=== PATIENT | female | born 1950 | race Caucasian/White ===

== ENCOUNTER 2020-09-27 02:11 | Inpatient (IN) | payer MEDICARE ==
[~2020-09-27] VITALS: Ht 162.6 cm; Wt 83.8 kg
[2020-09-27 02:49] LABS: Mean Platelet Volume 9.5 fL (9.1-12.4); Platelet Count 288 K/mm3 (150-400)
[2020-09-27 03:20] LABS: International Normalized Ratio 1.03
[2020-09-27] MEDS ORDERED: Aspir 8181 MG PO (03:44)
[2020-09-27] MEDS ORDERED: ATOR20 PO (03:45)
[2020-09-27] MEDS ORDERED: METO25 PO (03:47)
[2020-09-27] MEDS ORDERED: Primidone50 MG PO (03:49)
[2020-09-27] MEDS ORDERED: LOSA25 PO (03:51)
[2020-09-27] MEDS ORDERED: GABA100 PO (03:52)
[2020-09-27] MEDS ORDERED: TICA90TA PO (03:53)
[2020-09-27] MEDS ORDERED: TRAM50 PO (03:55)
[2020-09-27] MEDS ORDERED: NITR.4SL SL (03:56)
[2020-09-27 06:03] LABS: Alanine Aminotransfer (ALT/SGP 14 U/L (12-78); Albumin, Blood 3.6 g/dL (3.4-5.0); Albumin/Globulin Ratio 1.1 (0.8-1.8); Alk Phos 106 U/L (50-136); Anion Gap 5 mmol/L (6-16); Aspartate Aminotrans (AST/SGOT 16 U/L (12-37); Bilirubin, Total 0.3 mg/dL (0.1-1.0); Blood Urea Nitrogen 14 mg/dL (8-24); Bun/Creatinine Ratio 18.8 (12.0-20.0); CO2, Blood 30 mmol/L (21-32); Calcium, Blood 9.1 mg/dL (8.5-10.1); Chloride, Blood 106 mmol/L (98-108); Creatinine, Blood 0.75 mg/dL (0.40-1.00); Globulin, Blood 3.3 g/dL (2.2-4.0); Glomerular Filtration Rate >60 (60-); Glucose, Blood 93 mg/dL (70-99); Potassium, Blood 3.9 mmol/L (3.5-5.5); Sodium, Blood 141 mmol/L (136-145); Total Protein, Blood 6.9 g/dL (6.4-8.2)
[2020-09-27 06:13] LABS: BASOPHILS ABSOLUTE AUTO 0.02 K/mm3 (0.00-0.23); BASOPHILS PERCENT AUTO 0 % (0-2); EOSINOPHILS ABSOLUTE AUTO 0.25 K/mm3 (0.00-0.68); EOSINOPHILS PERCENT AUTO 3 % (0-6); Hematocrit 40.2 % (33.0-51.0); Hemoglobin 12.5 g/dL (11.5-16.0); IMMATURE GRAN ABSOLUTE AUTO 0.02 K/mm3 (0.00-0.10); IMMATURE GRAN PERCENT AUTO 0 % (0-1); LYMPHOCYTES ABSOLUTE AUTO 2.19 K/mm3 (0.84-5.20); LYMPHOCYTES PERCENT AUTO 30 % (21-46); MONOCYTES ABSOLUTE AUTO 0.57 K/mm3 (0.16-1.47); MONOCYTES PERCENT AUTO 8 % (4-13); Mean Corpuscular HGB 29.6 pg (26.0-34.0); Mean Corpuscular HGB Conc 31.1 g/dL (31.5-36.5); Mean Corpuscular Volume 95 fL (80-100); Mean Platelet Volume 9.7 fL (9.1-12.4); NEUTROPHILS ABSOLUTE AUTO 4.23 K/mm3 (1.96-9.15); NEUTROPHILS PERCENT AUTO 58 % (41-73); Platelet Count 286 K/mm3 (150-400); RDW Standard Deviation 48.7 fL (35.1-46.3); Red Blood Cell Count 4.22 M/mm3 (3.80-5.20); White Blood Cell Count 7.28 K/mm3 (4.00-11.30)
--- NOTE | 2020-09-27 07:44 | NUR ---
ED ADMIT ARRIVES AT 0320. STEADY GAIT. NO SOB. LUNGS CLEAR. PAIN NEVER RESOLVED COMPLETELY FOR MANY DAYS IT COMES AND GOES AND USUALLY ABOUT A 3/10 AND LOCALIZED MID STERNAL BUT FREQ RADIATES THRU TO BACK. IT IS DOING ON THIS ADMIT DISCRIPTION. PLACED CALL TO DR MEDINA TO REQUEST ORDERS SINCE THE HEPARIN AND NTG GTT WERE TURNED OFF COMPLETELY IN THE ED AND NO ORDERS TO START AGAIN. PHARMACY WILL REVIEW THIS AND ORDERS CAN BE ESTABLISHED FOR THIS MARINA. SUBLIMAZE RELIEVED CP WHEN ABLE TO FINALLY GIVE PER ORDER. O2 PLACED. NPO FOR CARDIOLOGY CONSULT. DOZING AT SHORT INTERVAL.
--- NOTE | 2020-09-27 09:34 | NUR ---
AM NOTE... ASSUMED CARE OF PT APROX 0700, PT IS A&Ox4 AND SBA IN THE ROOM D/T THE LINES AND CORDS. PT WAS ADMITTED FOR NSTEMI WITH ELEVATED TROPONINS ON ADMIT. ON ASSESSMENT PT C/O OF 2/10 CHEST PAIN AND 7/10 HEADACHE. PT'S VS STABLE AT THIS TIME SHE IS IN NSR/SB MID 50'S-60'S WITH NO ST CHANGES NOTED. BP STABLE AT THIS TIME. NO EDEMA NOTED ON ASSESSMENT. PT IS ON RA WITH O2 SATS>90%. L/S CLEAR T/O. BT PRESENT AND HYPOACTIVE, ABD IS SOFT AND NONTENDER TO PALP. PT HAS BEEN NPO UNTIL SEEN BY CARDIOLOGY. ECHO WAS DONE THIS AM. CALL LIGHT IN REACH WILL CONTINUE TO MONITOR.
--- NOTE | 2020-09-27 10:00 | NUR ---
ASSUMED PT CARE. PT RESTING QUIETLY IN BED. DENIES CHEST PAIN OR SOB AT THIS TIME. PT WILL CALL FOR RETURN OF CP OR SOB. PT AWARE THAT SHE IS NPO PENDING CONSULT FROM DR. JUAN AND POSSIBLE BACKGROUND CHECK COORDINATOR TODAY. PT VERBALIZES BOTH COOPERATION AND UNDERSTANDING. NEXT CARDIAC MARKERS AND PTT @ 1030.
--- NOTE | 2020-09-27 11:46 | NUR ---
DR JUAN AT BEDSIDE; PT CONSENTED FOR ANGIOGRAM. HEPARIN GTT STOPPED AT [address] JUAN. RAPID COVID 19 SENT TO LAB
[2020-09-27 11:49] LABS: Alanine Aminotransfer (ALT/SGP 13 U/L (12-78); Albumin, Blood 3.3 g/dL (3.4-5.0); Albumin/Globulin Ratio 1.1 (0.8-1.8); Alk Phos 100 U/L (50-136); Anion Gap 4 mmol/L (6-16); Aspartate Aminotrans (AST/SGOT 15 U/L (12-37); Bilirubin, Total 0.4 mg/dL (0.1-1.0); Blood Urea Nitrogen 12 mg/dL (8-24); Bun/Creatinine Ratio 16.8 (12.0-20.0); CO2, Blood 29 mmol/L (21-32); CPK Creatine Kinase 75 U/L (26-193); Chloride, Blood 107 mmol/L (98-108); Creatinine, Blood 0.71 mg/dL (0.40-1.00); Globulin, Blood 2.9 g/dL (2.2-4.0); Glomerular Filtration Rate >60 (60-); Glucose, Blood 86 mg/dL (70-99); Potassium, Blood 4.2 mmol/L (3.5-5.5); Sodium, Blood 140 mmol/L (136-145); Total Protein, Blood 6.2 g/dL (6.4-8.2)
[2020-09-27 11:54] LABS: Troponin I 0.653 ng/mL (0.000-0.040)
[2020-09-27 14:14] LABS: Influenza A, PCR Negative (NEGATIVE); Influenza B, PCR Negative (NEGATIVE); Resp Syncytial Virus, PCR Negative (NEGATIVE); SARS-Cov-2 (COVID-19) PCR, MMC Negative (NEGATIVE)
--- NOTE | 2020-09-27 14:34 | NUR ---
PT UP TO BEDSIDE COMMODE WITH STANDBY ASSIST. NO CP OR SOB.
--- NOTE | 2020-09-27 14:49 | NUR ---
PT VISITING WITH HER SON. NO NOTED DISTRESS-REPORT GIVEN TO TAYE IVY IN PREP TO TRANSFER PT TO PCU 15.
--- NOTE | 2020-09-27 14:51 | NUR ---
Telephonr report from Ofe Hairston RN. Pt transferring from ICU 14 to PCu 15. NPO for angiogram this afternoon.
--- NOTE | 2020-09-27 15:15 | NUR ---
Received pt from ICU. Her son is at the bedside. She is pleasantly conversant, only complaint is of headache, which she states is from the nitro. Given Tylenol for pain at this time. spo2 on room air 88-89%; put on 2 l/min of oxygen again, and spo2 improved to 92-94%.
--- NOTE | 2020-09-27 15:17 | NUR ---
Pt remains NPO for angiogram.
--- NOTE | 2020-09-27 17:06 | NUR ---
Pt taken to [facility] by Lopez, Harry.
--- NOTE | 2020-09-27 17:59 | NUR ---
Pt returned from the [facility] [place] [facility] angiogram. She appears to be sleeping, but opens her eyes and responds appropriately. States that she is too sleepy at this time to eat dinner. Vital signs taken and noted stable. Right wrist TR band in place, Alexandra RN states 9 cc in the band. NO swelling, no bleeding, no evidence of hematoma. Fingers of right hand are dark red, cap refill 4-5 seconds. spo2 measured on second digit of right hand is 99% on 2 l/min of oxygen delivery by nasal cannula. She is in no apparent distress, and has no complaints at this time. Bedside report received from Alexandra and Harry Tuttle from [facility].
--- NOTE | 2020-09-27 18:56 | NUR ---
Right radial site TR band in place, no ecchymosis, no swelling, no bleeding. The pt is sitting up in bed, eating dinner. she reports no pain or discomfort at this time. Vital signs noted stable.
--- NOTE | 2020-09-27 19:47 | NUR ---
bedside report given to Rosemary. The pt reported pain in her right forearm. No evidence of hematoma, no bleeding noted. 2 cc air removed slowly from the TR band and a trace amount of blood started to leak out of the site. 1 cc air reinflated into the band and the bleeding stopped. Vital signs taken, noted stable.
--- NOTE | 2020-09-28 05:58 | NUR ---
SHIFT SUMMARY: LONG IS A&OX4. VSS, ORA, NO ACUTE EVENTS OVERNIGHT. SITE OF ANGIOGRAM COVERED WITH OPSITE WHICH IS C/D&I, ARM BOARD IN PLACE. SHE IS INDEPENDENT IN THE ROOM AND IS TOLERATING PO INTAKE WELL. SHE IS URINATING WITHOUT DIFFICULTY, STRONG SMELLING URINE N0TED. SHE DENEIS ANY URINARY SYMPTOMS. IV TO L AC AND R FOREARM PATENT. SHE IS LYING IN BED WITH HER CALL LIGHT IN REACH. WILL REPORT TO DAY SHIFT RN.
--- NOTE | 2020-09-28 07:53 | NUR ---
ASSUMED CARE FROM NOC RN, BL. PT WAS AWAKE AND ORIENTED DURING REPORT. PT DENIES ANY PAIN OR NUMBNESS TO THE SURGICAL SITE. VS STABLE, PT ON ROOM AIR. PT STATED SHE HAD SOME CHEST PAIN LAST NIGHT BUT IT WAS RIGHT AFTER SHE ATE A LARGE MEAL AND SHE THOUGHT IT WAS INDIGESTION; ZOFRAN WAS GIVEN AND SEEMED TO HELP. PT DENIES CHEST PAIN AT THIS TIME, AND DENIES SOB. PT STATED SHE HAS NO CONCERNS AT THIS TIME AND IS AWAITING DISCHARGE
[2020-09-28] MEDS ORDERED: Isosorbide Mono30 MG PO (09:55)
--- NOTE | 2020-09-28 11:11 | NUR ---
DISCHARGE NOTE: PT IS PREPARED FOR DISCHARGE. PT GAVE VERBAL UNDERSTANDING OF NEW MEDICATION, IMDUR AND WAS SENT HOME WITH A EDUCATIONAL HAND OUT FOR THE MEDICATION. PT WAS ADVISED NOT TO BEND OR OVER USE THE RIGHT ARM WHERE THE RADIAL SITE IS, AT THIS TIME THERE IS NO BLEEDING OR DRAINAGE, THE TEGADERM IS C/D/I, ARM BAND IN PLACE AND PT DENIES NUMBNESS OR TINGLING AND PAIN.CAP REFILL IS LESS THAN 3 SECONDS AND PT'S COLOR IS PINK AND WARM. IV CATH WAS REMOVED, TIP INTACT, PT LAURA. WELL. PT'S HOME MEDICATIONS WERE RETURNED FROM PHARMACY. PT IS TO BE ESCORTED OUT WITH NURSING STAFF.
--- NOTE | 2020-09-28 11:22 | NUR ---
DISCHARGE PT LEFT THE FLOOR AT 1122 ON 09/28/20 VIA WHEELCHAIR ACCOMPANIED BY FLAKITA KELSEY
== END 2020-09-28 11:22 | disposition home or self-care (01) | DRG 282 ==
LOC: ER 02:11 → ICUW 02:28 → PCU 02:28 → ICUW 03:10 → PCU 15:02
PROVIDERS: Internal Medicine Cardiovascular Disease; Student in an Organized Health Care Education/Training Program; ADMIT Internal Medicine
PROC: 4A023N7 Measurement of Cardiac Sampling and Pressure, Left Heart, Percutaneous Approach (ICD-10-PCS; principal; 2020-09-27)
PROC: B211YZZ Fluoroscopy of Multiple Coronary Arteries using Other Contrast (ICD-10-PCS; 2020-09-27)
DX: I21.4 Non-ST elevation (NSTEMI) myocardial infarction (principal); Z20.828 Contact with and (suspected) exposure to other viral communicable diseases; I25.10 Atherosclerotic heart disease of native coronary artery without angina pectoris; I10 Essential (primary) hypertension; E78.5 Hyperlipidemia, unspecified; Z87.891 Personal history of nicotine dependence; Z95.5 Presence of coronary angioplasty implant and graft; Z79.82 Long term (current) use of aspirin
CPT/HCPCS: 0241U; 36415; 71045; 80053; 82550; 84484; 85025; 85049; 85379; 85610; 85730; 86850; 86900; 86901; 93005; 93010; 93306; 93458; 99152; 99153; 99285-25; A9270; A9270-GY; C1769; C1894; J1644; J2250; J2405; J3010; J7030; J7050; Q9967